=== PATIENT | female | born 2000 | race Two or more races ===

== ENCOUNTER 2020-04-11 16:00 | Emergency (ER) | payer SELFPAY ==
[~2020-04-11] VITALS: Ht 165.1 cm; Wt 85.0 kg
[2020-04-11 18:20] VITALS: BP 143/76
[2020-04-11] MEDS ORDERED: HYDROcodone/APAP 5/325MG 1 TAB TABLET PO ONE (18:30)
[2020-04-11] MEDS ORDERED: LIDOCAINE 1%/EPI 1:100,000 20 ML VIAL. INJ ONE (18:30)
[2020-04-11] MEDS ORDERED: DIPH,PERTUSS(ACELL),TET VAC/PF 0.5 ML SYRINGE. VAX IM ONE (18:45)
[2020-04-11] MEDS ORDERED: HYDR-3164 PO (20:20)
[2020-04-11] MEDS ORDERED: SULF1TAB23 PO (20:20)
--- NOTE | 2020-04-11 20:20 | PHYS DOC ---
Past Medical History Past Medical History: No Pertinent History Past Surgical History: No Surgical History Smoking Status: Never Smoker Alcohol Use: None General Adult EDM: Chief Complaint: ABSCESS HPI: HPI: Patient is a 19 year old female who presents to the ED today complaining of a buttocks abscess that she noted 4 days ago. Review of Systems: Review of Systems: Constitutional: Denies fever or chills. [] Musculoskeletal: Denies back pain or joint pain. [] Integument: buttocks abscess Neurologic: Denies headache, focal weakness or sensory changes. [] ] Psychiatric: Denies depression or anxiety. [] Heart Score: Risk Factors: Risk Factors: DM, Current or recent (<one month) smoker, HTN, HLP, family history of CAD, obesity. Risk Scores: Score 0 - 3: 2.5% MACE over next 6 weeks - Discharge Home Score 4 - 6: 20.3% MACE over next 6 weeks - Admit for Clinical Observation Score 7 - 10: 72.7% MACE over next 6 weeks - Early Invasive Strategies Current Medications: Current Medications Medications (Trade) Dose Ordered Sig/Leatha Start Time Stop Time Status Last Admin Dose Admin Acetaminophen/ Hydrocodone Bitart (Lortab 5/325) 2 tab 1X ONCE 04/11/20 18:30 04/11/20 18:31 DC 04/11/20 18:49 2 TAB Diphtheria/ Tetanus/Acell Pertussis (ADACEL TDap SYRINGE) 0.5 ml ONCE ONCE 04/11/20 18:45 04/11/20 18:53 DC 04/11/20 19:50 0.5 ML Lidocaine/ Epinephrine (LIDOCAINE 1%-EPI 1:100,000 Multi-Dose) 20 ml 1X ONCE 04/11/20 18:30 04/11/20 18:31 DC 04/11/20 18:49 20 ML Allergies: Allergies: Allergies Coded Allergies Type Severity Reaction Last Updated Verified No Known Drug Allergies 04/11/20 No Physical Exam: PE: Constitutional: Well developed, well nourished, no acute distress, non-toxic appearance. [] Skin: Coccyx region with a large pilonidal abscess draining yellow purulent material. There is surrounding moderate cellulitis. Back: No tenderness, no CVA tenderness. [] Extremities: No tenderness, no cyanosis, no clubbing, ROM intact, no edema. [] Neurologic: Alert and oriented X 3, normal motor function, normal sensory function, no focal deficits noted. [] Psychologic: Affect normal, judgement normal, mood normal. [] Current Patient Data: Vital Signs: Vital Signs Date Time Temp Pulse Resp B/P (MAP) Pulse Ox O2 Delivery O2 Flow Rate FiO2 04/11/20 18:49 16 99 Room Air 04/11/20 18:20 102 143/76 (98) 04/11/20 17:48 101.1 101.1 EKG: EKG: [] Radiology/Procedures: Radiology/Procedures: Indication: Pilonidal cyst/abscess Procedure: The patient was positioned appropriately. Local anesthesia was 1% of lidocaine with epinephrine. An incision was then made over the apex of the lesion with an 11 blade and moderate amount of bloody purulent material was expressed. The drainage cavity was irrigated and packed with sterile gauze. The patients tetanus status updated as needed. The patient tolerated the procedure well. Complications: none.[] Course & Med Decision Making: Course & Med Decision Making Pertinent Labs and Imaging studies reviewed. (See chart for details) Patient has a pilonidal cyst with abscess that was drained by me in the ED and packed. Tetanus updated. She is to return in the ED for 2 days for wound check. Dragon Disclaimer: Dragon Disclaimer: This electronic medical record was generated, in whole or in part, using a voice recognition dictation system. Departure Departure Impression: Primary Impression: Cyst, pilonidal, with abscess Disposition: 01 HOME, SELF-CARE Condition: STABLE Referrals: NO PCP (PCP) Return to the Ed for wound check and dressing change. Patient Instructions: Pilonidal Cyst Additional Instructions: Your abscess was drained in the emergency room. Please come back in 2 days for wound check and dressing change. Take the prescribed antibiotics as ordered. Scripts Hydrocodone/Apap 5-325 (NORCO 5-325 TABLET) 1 Each Tablet 1 TAB PO Q6-8HRS PRN for PAIN, #12 TAB Prov: BEV GARCES DESK OPERATOR 04/11/20 Sulfamethoxazole/Trimethoprim (BACTRIM 400-80 MG TABLET) 1 Each Tablet 1 TAB PO BID for 10 Days, #20 TAB 0 Refills Prov: BEV GARCES DESK OPERATOR 04/11/20 Justicifation of Admission Dx: Justifications for Admission: Justification of Admission Dx: N/A MUTUNGA,BEV DESK OPERATOR Apr 11, 2020 20:20
== END 2020-04-11 20:38 | disposition home or self-care (01) ==
LOC: ER 16:00
DX: L05.01 Pilonidal cyst with abscess (principal)
CPT/HCPCS: 10080; 90471; 90715; 99283; J3490

== ENCOUNTER 2020-04-13 15:58 | Emergency (ER) | payer SELFPAY ==
[~2020-04-13] VITALS: Ht 160 cm; Wt 72.0 kg
[~2020-04-13 15:58] MED LIST: HYDR-3164 PO; SULF1TAB23 PO
[2020-04-13 16:20] VITALS: BP 134/76
--- NOTE | 2020-04-13 16:30 | PHYS DOC ---
Past Medical History Past Medical History: No Pertinent History Past Surgical History: No Surgical History Smoking Status: Never Smoker Alcohol Use: None General Adult EDM: Chief Complaint: WOUND RECHECK/SUTURE REMOVAL HPI: HPI: Patient is a 19-year-old female who presents with chief complaint of wound reevaluation. Per patient and chart review she was seen 2 days ago for pilonidal cyst abscess. This was drained with incision and drainage at bedside. She was discharged home with Bactrim. She states that her wound continues to drain. States the pain is significantly improved. States she is still taking her antibiotic. Denies fevers. Denies vomiting. Denies skin changes over the area. States that her symptoms have overall improved she just returned at the instruction of the previous provider. No other complaints. Review of Systems: Review of Systems: Constitutional: Denies fever or chills. [] Eyes: Denies change in visual acuity. [] HENT: Denies nasal congestion or sore throat. [] Respiratory: Denies cough or shortness of breath. [] Cardiovascular: Denies chest pain or edema. [] GI: Denies abdominal pain, nausea, vomiting, bloody stools or diarrhea. [] : Denies dysuria. [] Musculoskeletal: Denies back pain or joint pain. [] Integument: Positive for abscess Neurologic: Denies headache, focal weakness or sensory changes. [] Endocrine: Denies polyuria or polydipsia. [] Lymphatic: Denies swollen glands. [] Psychiatric: Denies depression or anxiety. [] Heart Score: Risk Factors: Risk Factors: DM, Current or recent (<one month) smoker, HTN, HLP, family history of CAD, obesity. Risk Scores: Score 0 - 3: 2.5% MACE over next 6 weeks - Discharge Home Score 4 - 6: 20.3% MACE over next 6 weeks - Admit for Clinical Observation Score 7 - 10: 72.7% MACE over next 6 weeks - Early Invasive Strategies Allergies: Allergies: Allergies Coded Allergies Type Severity Reaction Last Updated Verified No Known Drug Allergies 04/11/20 No Physical Exam: PE: Constitutional: Well developed, well nourished, no acute distress, non-toxic appearance. [] HENT: Normocephalic, atraumatic, bilateral external ears normal, oropharynx moist, no oral exudates, nose normal. [] Eyes: PERRLA, EOMI, conjunctiva normal, no discharge. [] Neck: Normal range of motion, no tenderness, supple, no stridor. [] Cardiovascular:Heart rate regular rhythm, no murmur [] Lungs & Thorax: Bilateral breath sounds clear to auscultation [] Abdomen: soft, no tenderness, no masses, no pulsatile masses. [] : 0.5 cm incision noted over the superior gluteal cleft. Minimal purulent drainage able to be expressed. No surrounding induration or erythema. Wick appears in place. No crepitus palpated. Overall appears well-healed. Skin: Warm, dry, no erythema, no rash. [] Back: No tenderness, no CVA tenderness. [] Extremities: No tenderness, no cyanosis, no clubbing, ROM intact, no edema. [] Neurologic: Alert and oriented X 3, normal motor function, normal sensory function, no focal deficits noted. [] Psychologic: Affect normal, judgement normal, mood normal. [] EKG: EKG: [] Radiology/Procedures: Radiology/Procedures: [] Course & Med Decision Making: Course & Med Decision Making Pertinent Labs and Imaging studies reviewed. (See chart for details) [] Patient is a 19-year-old female who presents with chief complaint of wound reevaluation. Patient did have incision and drainage of pilonidal cyst abscess performed 2 days ago. She is currently taking Bactrim. On my examination her wound appears to be healing well. No indication for repeat imaging. Wick appears in place with active drainage. I do feel she is appropriate for discharge home and follow-up with her primary care physician. Instructed to continue to take Bactrim. Return precautions discussed and understood. Stable for discharge home. Jesus Disclaimer: Jesus Disclaimer: This electronic medical record was generated, in whole or in part, using a voice recognition dictation system. Departure Departure Impression: Primary Impression: Cyst, pilonidal, with abscess Disposition: 01 HOME, SELF-CARE Condition: STABLE Referrals: NO PCP (PCP) Patient Instructions: Pilonidal Cyst, Pilonidal Cyst, Care After Additional Instructions: Please follow-up with your primary care physician in the next 2 to 3 days. [facility] [address] [id number] [facility] [address] [place] [address] [facility] [address] [place] [address] [facility] [address] [place] [address] [facility] [address] [place] [address] [facility] [address] [place] [address] [facility] [address] [place] [address] [facility] [address] [place] [address] [facility] [address] [place] [address] [facility] [address] [place] [address] Justicifation of Admission Dx: Justifications for Admission: Justification of Admission Dx: N/A DWAIN PRESTON DO Apr 13, 2020 16:30
== END 2020-04-13 16:40 | disposition home or self-care (01) ==
LOC: ER 15:58
DX: L05.01 Pilonidal cyst with abscess (principal)
CPT/HCPCS: 99282